=== PATIENT | female | born 1965 | race Caucasian/White ===

== ENCOUNTER 2021-06-06 19:49 | Emergency (ER) | payer OTHER, SELFPAY ==
[2021-06-06 19:57] VITALS: BP 150/124; PULSE 81; RESP 20; TEMP 37.3; O2SAT 100
--- NOTE | 2021-06-06 20:06 | ED.GENADULT ---
HPI - General Adult General Chief complaint: Ear Stated complaint: Ear Pain Source: patient Mode of arrival: ambulatory Limitations: no limitations History of Present Illness HPI narrative: 55 y/o female. PMHx HTN, HLD. Presents to [facility] today with acute c/o RT ear ache, worsening in the past 24 hours. She reports a history of frequent Otitis media and Tympanostomy tubes. Followed by local ENT speciality per report. No Auditory changes, trauma, or loss. Pain is described as 'throbbing'. Refractory to home OTC remedies. Related Data Allergies Allergy/AdvReac Type Severity Reaction Status Date / Time metoclopramide Allergy Severe Unverified 05/11/16 08:32 midazolam Allergy Unknown Verified 10/25/15 08:12 nitrofurantoin Allergy Unknown HIVES/RED Unverified 05/11/16 08:32 FACE Penicillins Allergy Unknown Verified 10/25/15 08:13 vancomycin Allergy Unknown Verified 10/25/15 08:13 Review of Systems Review of Systems: CONSTITUTIONAL: Denies fever, chills, sweats. EYES: Denies visual changes, redness, discharge. ENT: Denies rhinorrhea, congestion, sore throat. RT otalgia. CARDIOVASCULAR: Denies chest pain, palpitations, edema. RESPIRATORY: Denies dyspnea, wheezing, cough GASTROINTESTINAL: Denies abdominal pain, nausea, vomiting, diarrhea. GENITOURINARY: Denies dysuria, hematuria, abnormal discharge SKIN: Denies rash or itching. MUSCULOSKELETAL: Denies acute back pain, joint pain, or myalgia. NEUROLOGIC: Denies numbness, or focal weakness. PSYCHIATRIC: Denies anxiety or depression. All systems reviewed & are unremarkable except as noted in HPI and below PMFSH Family History Family History Other Diabetes mellitus Family history of allergic disorder Family history of malignant neoplasm Hypertension Social History Social History Smoking status: Never smoker Alcohol intake: never Exam Narrative: GENERAL: This is a well-nourished, well-developed adult, in no apparent distress. HEAD: normocephalic, atraumatic. EYES: PERRL. Sclera clear/white. EARS: External ears normal, LT ear normal. RT auditory canal erythema with discharge, mild. Tympanostomy tube visualized, no obstruction. Positive RT tragus maneuver. No hearing deficits. NOSE: External nose normal. Positive Rhinorrhea, no obstruction, nares patent. THROAT: Mucous membranes moist, posterior pharynx clear. No exudates. NECK: Neck supple, non-tender without lymphadenopathy, masses or thyromegaly. CARDIOVASCULAR: Regular rate and rhythm without murmurs, gallops, or rubs. RESPIRATORY: Clear to auscultation. Breath sounds equal bilaterally. No wheezes, rales, or rhonchi. GASTROINTESTINAL: Abdomen soft, non-tender, nondistended. Bowel sounds are active. No guarding. SKIN: warm, intact with no suspicious lesions or rash, good texture and turgor. NEURO: Alert, active, and age appropriate. No focal neurologic deficits. EXTREMITIES: Negative. Course Vital Signs Vital signs: Vital Signs Temperature 37.3 C 06/06/21 19:57 Pulse Rate 81 06/06/21 19:57 Respiratory Rate 20 06/06/21 19:57 Blood Pressure 150/124 H 06/06/21 19:57 Pulse Oximetry 100 06/06/21 19:57 Temperature 37.3 C 06/06/21 19:57 Pulse Rate 81 06/06/21 19:57 Respiratory Rate 20 06/06/21 19:57 Blood Pressure 150/124 H 06/06/21 19:57 Pulse Oximetry 100 06/06/21 19:57 Medical Decision Making MDM Narrative Medical decision making narrative: -Otitis Media RT. No auditory deficits -OP POC, AVS, & Medication instructions reviewed. -Established ENT F/U 1 WK. -ER W/Emergent health status changes. pt agrees. Differential Diagnosis Differential Diagnosis: Differential Diagnosis: Consideration of the following conditions may be warranted for the presenting problem, they are not final diagnoses: upper respiratory infection, otitis m
[2021-06-06] MEDS: KETOROLAC 30 MG/ML VIAL (*BKC) IM (20:07)
== END 2021-06-06 20:15 | disposition home or self-care (01) ==
PROVIDERS: Emergency Provider Nurse Practitioner Adult Health
DX: H66.91 Otitis media, unspecified, right ear (principal)
CPT/HCPCS: 96372; 99213; G0463; J1885

== ENCOUNTER 2023-12-01 10:54 | Outpatient (CLI) | payer OTHER, SELFPAY ==
[2023-12-01 12:17] LABS: Basophils Percent Auto 0.5 % (0.2-1.2); Eosinophils Absolute Auto 0.2 K/mm3 (0-0.3); Eosinophils Percent Auto 2.7 % (0-4.4); Hematocrit 43.2 % (37.0-47.0); Hemoglobin 14.2 g/dL (12.0-15.0); Immature Granulocyte Absolute 0.03 K/mm3 (0.00-0.031); Immature Granulocyte Percent A 0.5 % (0-0.5); Lymphocytes Absolute Auto 1.57 K/mm3 (0.9-3.2); Lymphocytes Percent Auto 25.3 % (18.3-44.2); Mean Corpuscular HGB Conc 32.9 g/dl (32-36); Mean Corpuscular Hemoglobin 28.6 pg (26-34); Mean Corpuscular Volume 87.1 fl (80-100); Monocytes Absolute Auto 0.4 K/mm3 (0.1-0.6); Monocytes Percent Auto 6.1 % (2.6-8.5); Neutrophils Percent Auto 64.9 % (45.5-73.1); Platelet Count Result 248 k/mm3 (150-375); Red Blood Count 4.96 M/mm3 (4.2-5.4); Red Cell Distribution Width 12.6 % (11.5-14.5); White Blood Count 6.2 K/mm3 (4.5-10.0)
[2023-12-01 12:22] LABS: Alanine Aminotransferase 44 U/L (6-35); Albumin Level 4.3 g/dL (3.5-5.1); Alkaline Phosphatase 97 U/L (38-126); Anion Gap 7 mmol/L (4-12); Aspartate Amino Transferase 58 U/L (14-36); Bilirubin,Total 1.1 mg/dL (0.2-1.3); Blood Urea Nitrogen 13 mg/dL (7-17); Calcium 9.5 mg/dL (8.4-10.2); Carbon Dioxide 28 mmol/L (22-30); Chloride 102 mmol/L (98-107); Cholesterol 207 mg/dL (0-200); Estimated Glomerular Filt Rate > 60; Glucose 164 mg/dL (65-110); HDL Direct 41 mg/dL; Potassium 4.2 mmol/L (3.4-5.0); Sodium 137 mmol/L (137-145); Triglycerides 151 mg/dL (<150)
[2023-12-01 12:33] LABS: LDL Cholesterol Direct 122 mg/dL
[2023-12-01 13:11] LABS: Hemoglobin A1C 7.7 % (<5.7)
[2023-12-04 13:12] LABS: Vitamin D 1,25 (OH)2 Total 64 pg/mL (18-72); Vitamin D2 1,25 (OH)2 <8 pg/mL; Vitamin D3 1,25 (OH)2 64 pg/mL
== END 2023-12-01 10:55 | disposition home or self-care (01) ==
LOC: ANHGOSHLAB 10:56
PROVIDERS: PCP Family Medicine; Visit Provider Nurse Practitioner Family
DX: Z00.00 Encounter for general adult medical examination without abnormal findings (principal); E55.9 Vitamin D deficiency, unspecified; E11.9 Type 2 diabetes mellitus without complications
CPT/HCPCS: 36415; 80053; 80061; 82652; 83036; 84443; 85025